=== PATIENT | male | born 2000 | race Two or more races ===

== ENCOUNTER 2019-02-09 12:03 | Emergency (ER) | payer BC, OTHER ==
[~2019-02-09] VITALS: Ht 177.8 cm; Wt 65.8 kg
[~2019-02-09 12:03] MED LIST: ASPITAB87; IBUP100T4; PEPTO BISMAL
[2019-02-09 12:08] VITALS: BP 132/70
[2019-02-09] MEDS ORDERED: IBUPROFEN 800 MG TAB PO ONE (13:45)
== END 2019-02-09 13:53 | disposition home or self-care (01) ==
LOC: ER 12:05
DX: S60.221A Contusion of right hand, initial encounter (principal); W55.12XA Struck by horse, initial encounter; Y93.89 Activity, other specified; Y99.8 Other external cause status; Y92.89 Other specified places as the place of occurrence of the external cause
CPT/HCPCS: 73130